=== PATIENT | female | born 1975 | race African-American/Black ===

== ENCOUNTER 2018-01-20 03:54 | Emergency (ER) | payer MEDICAID ==
[~2018-01-20] VITALS: Ht 162.6 cm; Wt 89.8 kg
[2018-01-20 04:09] VITALS: BP_SYST 141
[2018-01-20] MEDS ORDERED: PANTOPRAZOLE SODIUM 40 MG TAB PO ONE (04:30)
[2018-01-20] MEDS ORDERED: LIDOCAINE VISCOUS 2%, 15 ML UDC MM ONE (04:30)
[2018-01-20] MEDS ORDERED: BELLADONNA ALKALOIDS/PHENOBARB 5 ML UDC PO ONE (04:30)
[2018-01-20] MEDS ORDERED: ONDANSETRON HCL 4 MG/2 ML VIAL IM ONE (04:30)
[2018-01-20] MEDS ORDERED: fentaNYL CITRATE/PF 100 MCG/2 ML AMP IM ONE (04:30)
[2018-01-20] MEDS ORDERED: MAG-AL HYDROX/SIMETH 30 ML UDC PO ONE (04:30)
[2018-01-20 05:05] VITALS: BP_SYST 136
== END 2018-01-20 05:05 | disposition home or self-care (01) ==
LOC: SED 03:54
DX: K29.70 Gastritis, unspecified, without bleeding (principal); R03.0 Elevated blood-pressure reading, without diagnosis of hypertension
CPT/HCPCS: 96372; 99284; J2001; J2405; J3010

== ENCOUNTER 2018-01-20 06:21 | Observation (INO) | payer MEDICAID ==
[~2018-01-20] VITALS: Ht 162.6 cm; Wt 89.8 kg
[2018-01-20 06:46] VITALS: BP_SYST 130
[2018-01-20] MEDS ORDERED: NACL 0.9% 1,000 ML IV ONE (06:51)
[2018-01-20] MEDS ORDERED: KETOROLAC TROMETHAMINE 30 MG VIAL IVP ONE (07:00)
[2018-01-20] MEDS ORDERED: ONDANSETRON HCL 4 MG/2 ML VIAL IVP ONE (07:00)
[2018-01-20 07:17] LABS: HEMATOCRIT 44.8 % (36-48); HEMOGLOBIN 14.6 g/dL (12.0-16.0); LYMPHOCYTES % (AUTO) 41.3 % (20.5-51.5); MEAN CORPUSCULAR HEMOGLOBIN 28 pg (27-31); MEAN CORPUSCULAR HGB CONC 33 % (32-36); MEAN CORPUSCULAR VOLUME 85 fL (79.0-98.0); MONOCYTES # (AUTO) 0.3 K/uL (0.0-1.0); MONOCYTES % (AUTO) 5.9 % (1.7-9.3); NEUTROPHILS # (AUTO) 2.5 K/uL (1.8-7.7); NEUTROPHILS % (AUTO) 51.2 % (40.0-70.0); PLATELET COUNT (AUTO) 200 K/uL (130-430); RED BLOOD CELL COUNT(AUTO) 5.27 MIL/uL (4.2-6.2); RED CELL DISTRIBUTION WIDTH 12.3 % (9.0-15.0); WHITE BLOOD COUNT (AUTO) 4.9 K/uL (4.8-10.8)
[2018-01-20 07:24] LABS: EOSINOPHILS # (AUTO) 0.1 K/uL (0.0-0.4); EOSINOPHILS % (AUTO) 1.6 % (0.0-4.0)
[2018-01-20 07:29] LABS: CALCIUM 8.5 mg/dL (8.4-11.0); CREATININE 0.78 mg/dL (0.55-1.30); POTASSIUM 4.3 mmol/L (3.5-5.1)
[2018-01-20 07:34] LABS: ALBUMIN 3.5 g/dL (3.4-4.8); TOTAL BILIRUBIN 0.3 mg/dL (0.0-1.0)
[2018-01-20] MEDS ORDERED: NACL 0.9% 1,000 ML IV SCH (08:00)
[2018-01-20] MEDS ORDERED: ACETAMINOPHEN 325 MG TABLET PO PRN (08:30)
[2018-01-20] MEDS ORDERED: ONDANSETRON HCL 4 MG/2 ML VIAL IVP PRN (08:30)
[2018-01-20 08:56] LABS: PROTHROMBIN TIME 9.9 SECS (9.5-12.5)
[2018-01-20 09:00] VITALS: BP_SYST 127
[2018-01-20] MEDS ORDERED: PANTOPRAZOLE SODIUM 40 MG/VIAL (PROTONIX) IVP SCH (09:00)
[2018-01-20] MEDS: MORPHINE 2 MG/ML INJ. SYRINGE IVP PRN ×2 (09:56→15:36)
[2018-01-20] MEDS ORDERED: AMPICILLIN SODIUM/SULBACTAM NA 3 GM in NS 100 ML IV SCH ×4 (12:00)
[2018-01-20 12:08] VITALS: BP_SYST 116
[2018-01-20 14:02] VITALS: BP_SYST 127
[2018-01-20 16:08] VITALS: BP_SYST 125
== END 2018-01-20 16:38 | disposition short-term general hospital (02) ==
LOC: SED 06:21 → SMU 07:59
PROVIDERS: ADMIT Internal Medicine; ATTEND Internal Medicine
DX: K80.10 Calculus of gallbladder with chronic cholecystitis without obstruction (principal)
CPT/HCPCS: 36415; 76700; 80053; 83690; 85025; 85610; 85730; 87081; 96361; 96365; 96375 ×2; 96376; 99285; C9113; G0378; J0295; J1885; J2270; J7030; 96374